=== PATIENT | male | born 1960 | race Caucasian/White ===

== ENCOUNTER → 2017-03-26 | Outpatient (CLI) | payer BC ==
--- NOTE | 2017-03-26 10:44 | RADRPT ---
PROCEDURE: CR Pelvis and Left Hip CLINICAL INDICATION: Pain TECHNIQUE: Radiograph is submitted including an AP pelvis and an additional frog-leg image of the left hip. COMPARISON: None FINDINGS: The study is limited at the superior pelvis is excluded. Osseous structures: There is a well seated resurfacing left total hip prosthesis. The visualized oss eous elements otherwise appear intact. Hip joints: The right hip joint is well maintained. Sacroiliac joints: The partially visualized sacroiliac joints appear unremarkable. Soft tissues: Appear unremarkable. IMPRESSION: 1. Well seated resurfacing total left hip prosthesis. 2. Otherwise, unremarkable limited pelvis and left hip series. Physician Femi Date Time Electronically viewed and signed by Physician Femi on 03/26/2017 10:44 /
--- NOTE | 2017-03-27 06:27 | HKNOTE ---
DATE OF SERVICE: 03/26/2017 MAIN COMPLAINT: Pain in the left hip. HISTORY OF MAIN COMPLAINT: The patient is a 56-year-old male who underwent a left total hip replace ment which was performed by me 10 years ago. He has been very pleased with the results of the surge ry. The hip has felt normal all along until about 2 months ago when he developed pain in the left h ip. Of important note is that patient had an infected laceration on his right arm 9 months ago. He "geremias t into septic shock" and was hospitalized for 3 days. PRESENT COMPLAINTS: The pain in the left hip is localized over the greater trochanter. There is so me radiation down the lateral aspect of the thigh along the iliotibial band. Pain varies from moder ate to severe today to severe. He sleeps with a pillow between his legs. He is not able to lie on the left side at all. Pain is aggravated by walking, weightbearing and stair climbing. He does get rest pain and night pain. He has been taking Advil and trazodone, Vicodin and/or [place]. He does h ave a history of problems with his lower back. He has had a rhizotomy and injections. He gets numb ness and tingling in his legs. On a level surface he can walk as far as he likes, but he starts mcconnell ping after about 100 paces. He never limps. He does not have a shoe lift. He can clip his toenail s and tie his shoelaces. SPORTING ACTIVITIES: Walking. PAST ORTHOPEDIC HISTORY: Left hip replacement [address] Brown. PRIOR CORTISONE INTAKE: None. 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 PRIOR INJURIES TO HIPS AND KNEES: The patient gets pain in his left knee. He is not sure if it rad iates from his left hip. Football injury to the left hip as a child. BLOOD TESTS FOR ARTHRITIS: None. WORK STATUS: The patient is a professor at [employer]. PAST MEDICAL HISTORY: Negative. PAST SURGICAL HISTORY: 1. Left hip replacement 10 years ago. 2. Fracture, left arm 20 years ago. DRUG ALLERGIES: NONE. MEDICATIONS: See attached list. FAMILY HISTORY: Mother at 53 of cancer. SYSTEMS REVIEW: Prone to heartburn, gait disturbance, otherwise entirely negative. HABITS: Patient does not smoke or drink alcoholic beverages at this time. Patient has quit drinkin g 1 year ago. VICE PRESIDENT OF NURSING: Dr. Govind Canales, [id number] [facility] [address], [place], [place] [address]. PHYSICAL EXAMINATION GENERAL: The patient is aged 56-year-old male. He comes in with an associate from the [facility]. VITAL SIGNS: Height 5 foot 11 inches, weight 185 pounds. Blood pressure 125/80, temperature 98.6. GAIT: Patient's gait is normal. RIGHT HIP: A full range of motion without pain. LEFT HIP: A full range of motion without pain. Marked tenderness over the left greater trochanter. IMAGING: Plain x-rays of the pelvis and left hip obtained today at [facility] we re reviewed. This shows a surface type of total hip replacement. The components all appear to be w ell aligned. No clear-cut evidence of loosening. The femoral neck seems to be narrower than the mo uth of the femoral component suggesting possible atrophy on the femoral neck. In the region of the intraosseous stem near the tip, there appears to be a small area of lysis. DIAGNOSES: 1. Trochanteric bursitis of the left hip. 2. Status post left surface hip replacement. 3. Possible early loosening of the femoral component. MANAGEMENT: Under sterile conditions, the patient was given injection of 2 mL of Kenalog and 6 mL o f 2% lidocaine into the trochanteric bursa. The nature of trochanteric bursitis was discussed with him in a fair amount of detail. Under sterile conditions, he was given injection of 2 mL of Kenalog and 6 mL of 2% lidocaine into th e trochanteric bursa. He will be seen again as necessary. He understands that he can get these inj ections no more frequently than every 3 months. Dictated By: ONEIAD ANDERSON/GHULAM Conf#: [id number] DID#: [id number]
== END | disposition home or self-care (01) ==
LOC: HKI 10:12
DX: M70.62 Trochanteric bursitis, left hip (principal); Y93.61 Activity, american tackle football; Z96.642 Presence of left artificial hip joint
CPT/HCPCS: 20610; 73502; G0463

== ENCOUNTER → 2017-07-18 | Outpatient (CLI) | END | disposition home or self-care (01) ==